=== PATIENT | male | born 1940 | race Caucasian/White ===

== ENCOUNTER 2021-07-26 13:21 | Emergency (ER) | payer OTHER ==
[~2021-07-26] VITALS: Ht 175.3 cm; Wt 72.6 kg
[2021-07-26] MEDS ORDERED: CHILDREN'S ASPI81 MG (13:59)
[2021-07-26] MEDS ORDERED: AMLODIPINE-OLM1 EACH PO (14:00)
[2021-07-26] MEDS ORDERED: FOLIC ACID0.8 M1 PO (14:00)
[2021-07-26] MEDS ORDERED: BENAZEPRIL HCL5 MG PO (14:00)
== END 2021-07-26 19:25 | disposition left against medical advice (07) ==
LOC: EDSEX 13:21 → ER 13:21
DX: E86.0 Dehydration (principal); Z86.79 Personal history of other diseases of the circulatory system

== ENCOUNTER 2021-07-31 12:12 | Emergency (ER) | payer OTHER ==
[~2021-07-31] VITALS: Ht 175.3 cm; Wt 72.6 kg
[~2021-07-31 12:12] MED LIST: AMLODIPINE-OLM1 EACH PO; BENAZEPRIL HCL5 MG PO; CHILDREN'S ASPI81 MG; FOLIC ACID0.8 M1 PO
== END 2021-07-31 17:48 | disposition home or self-care (01) ==
LOC: ER 12:12
DX: R20.0 Anesthesia of skin (principal)